=== PATIENT | female | born 1970 | race Caucasian/White ===

== ENCOUNTER 2016-08-21 06:24 | Inpatient (IN) | payer BC ==
[2016-08-21] VITALS (12 sets, daily range): BP systolic 98–119; BP diastolic 51–72
[~2016-08-21] VITALS: Ht 165 cm; Wt 54.9 kg
[~2016-08-21 06:24] MED LIST: NKM
[2016-08-21] MEDS ORDERED: D5W IVPB ONE (07:00)
[2016-08-21] MEDS ORDERED: CEFOXITIN SOD IVPB ONE (07:00)
[2016-08-21] MEDS ORDERED: Ropivacaine 5mg/ml Vial 20ml INJ ONE (07:07)
[2016-08-21] MEDS ORDERED: Morphine Sulfate PF 10 ML ONE (07:26)
[2016-08-21] MEDS ORDERED: Ropivacaine 2mg/ml Amp INJ ONE (07:27)
[2016-08-21] MEDS ORDERED: LR 1000ml ONE (07:30)
[2016-08-21] MEDS ORDERED: Sterile Water Irrig 1000ml IRRIG ONE (07:30)
[2016-08-21] MEDS ORDERED: Neostigmine 1mg/ml 10ml Inj ONE (07:30)
[2016-08-21] MEDS ORDERED: Propofol 10mg/ml 20ml IV ONE (07:30)
[2016-08-21] MEDS ORDERED: Lidocaine 1% Plain 30 ml INJ ONE (07:30)
[2016-08-21] MEDS ORDERED: fentaNYL 100 mcg/2 mL IV ONE (07:30)
[2016-08-21] MEDS ORDERED: NS Irrig 1000ml ONE (07:30)
[2016-08-21] MEDS ORDERED: Labetalol 5mg/ml 20ml vial IV ONE (07:30)
[2016-08-21] MEDS ORDERED: Glycopyrrolate 0.2mg/ml 1ml Vial ONE (07:30)
--- NOTE | 2016-08-21 07:38 | Anethesia Preoperative Eval ---
Anesthesia Pre-op PMH/ROS General Date of Evaluation: Aug 21, 2016 Time of Evaluation: 07:31 Anesthesiologist: Haleigh ASA Score: ASA 1 Mallampati Score Class I : Soft palate, uvula, fauces, pillars visible Class II: Soft palate, uvula, fauces visible Class III: Soft palate, base of uvula visible Class IV: Only hard plate visible Mallampati Classification: Class I Surgeon: Anatoly Diagnosis: Abd Pain Surgical Procedure: Total Abdominal Hysterectomy and Salpingectomy Anesthesia History: none Family History: no anesthesia problems Allergies: Coded Allergies: No Known Allergies (Unverified , 08/20/16) Medications: see eMAR Past Medical History Cardiovascular: Denies: CAD, HTN, [place], arrhythmia, other, valve dz Pulmonary: Denies: COPD, SEBASTIEN, asthma, other Gastrointestinal/Genitourinary: Reports: other - Abd Pain Neurologic/Psychiatric: Denies: CVA, TIA, dementia, depression/anxiety, other Endocrine: Denies: DM, hypothyroidism, other, steroids HEENT: Denies: VIEJAS (L), VIEJAS (R), cataract (L), cataract (R), glaucoma, other Hematology/Immune: Denies: DVT, anemia, bleeding disorder, other Musculoskeletal/Integumentary: Denies: DDD, DJD, OA, RA, edema, other Anesthesia Pre-op Phys. Exam Physician Exam Last Vital Signs Date Time Temp Pulse Resp B/P Pulse Ox O2 Delivery O2 Flow Rate FiO2 08/21/16 07:20 98.5 61 20 119/72 100 Room Air Constitutional: NAD Neurologic: CN 2-12 intact Cardiovascular: RRR Respiratory: CTA Gastrointestinal: S/NT/ND Airway Exam Mallampati Score: Class I MO: full ROM: full Teeth: intact Anesthesia Pre-op A/P Labs Urine Test Test 08/21/16 06:45 Urine HCG, Qualitative Pending Risk Assessment & Plan Assessment: ASA 1 Plan: GA, BIS, Glidescope, Spinal Status Change Before Surgery: No Pre-Antibiotics Dru Gram Ancef IV Given Within 1 Hr of Incision: Yes Time Given: 07:51 Quirino Ricardo MD Aug 21, 2016 07:38
--- NOTE | 2016-08-21 07:38 | Pre-Procedure Note/Attestation ---
Pre-Procedure Note/Attestation Complete Prior to Procedure Planned Procedure: not applicable Procedure Narrative: Hysterectomy, bilateral salpingectomy Indications for Procedure Pre-Operative Diagnosis: uterine endometriosis, metromenorhagia and dysmenorhea Attestation I attest that I discussed the nature of the procedure; its benefits; risks and complications; and alternatives (and the risks and benefits of such alternatives ), prior to the procedure, with the patient (or the patient's legal insurance sales representative). I attest that, if there was a reasonable possibility of needing a blood transfusion, the patient (or the patient's legal insurance sales representative) was given the [facility] of Health Services standardized written summary, pursuant to the Benjamín Gloria Blood Safety Act ([place] Health and Safety Code # 1645, as amended). I attest that I re-evaluated the patient just prior to the surgery and that there has been no change in the patient's H&P, except as documented below: MARIS DELANEY Aug 21, 2016 07:38
--- NOTE | 2016-08-21 07:39 | Pre-Procedure Note/Attestation ---
Pre-Procedure Note/Attestation Complete Prior to Procedure Procedure Narrative: abdominal hysterectomy/ bilateral salpingectomies Indications for Procedure Pre-Operative Diagnosis: uterine endometriosis, metromenorhagia and dysmenorhea Attestation I attest that I discussed the nature of the procedure; its benefits; risks and complications; and alternatives (and the risks and benefits of such alternatives ), prior to the procedure, with the patient (or the patient's legal roofing sales representative). I attest that, if there was a reasonable possibility of needing a blood transfusion, the patient (or the patient's legal roofing sales representative) was given the [facility] of Health Services standardized written summary, pursuant to the Benjamín Shallowater Blood Safety Act ([place] Health and Safety Code # 1645, as amended). I attest that I re-evaluated the patient just prior to the surgery and that there has been no change in the patient's H&P, except as documented below: MARIS DELANEY Aug 21, 2016 07:39
--- NOTE | 2016-08-21 07:39 | Immediate Post-Op Evaluation ---
Immediate Post-Op Evalulation Immediate Post-Op Evalulation Procedure: Total Abdominal Hysterectomy and Salpingectomy Date of Evaluation: Aug 21, 2016 Time of Evaluation: 10:31 IV Fluids: 800 LR Blood Products: 0 Estimated Blood Loss: 75 Urinary Output: 0 Blood Pressure Systolic: 103 Blood Pressure Diastolic: 55 Pulse Rate: 72 Respiratory Rate: 16 O2 Sat by Pulse Oximetry: 100 Temperature (Fahrenheit): 97.8 Pain Score (1-10): 1 Nausea: No Vomiting: No Complications 0 Patient Status: awake, reacts, patent, none Hydration Status: adequate Dru Gram Ancef IV Given Within 1 Hr of Incision: Yes Time Given: 10:51 Quirino Ricardo MD Aug 21, 2016 07:39
--- NOTE | 2016-08-21 07:40 | 48 Hour Post Anesthesia Eval ---
Post Anesthesia Evaluation Procedure: Total Abdominal Hysterectomy and Salpingectomy Date of Evaluation: Aug 21, 2016 Time of Evaluation: 12:42 Blood Pressure Systolic: 113 0: 62 Pulse Rate: 78 Respiratory Rate: 18 Temperature (Fahrenheit): 98.3 O2 Sat by Pulse Oximetry: 100 Airway: patent Nausea: No Vomiting: No Pain Intensity: 2 Hydration Status: adequate Cardiopulmonary Status: Stable Mental Status/LOC: patient returned to baseline Follow-up Care/Observations: 0 Post-Anesthesia Complications: 0 Follow-up care needed: N/A Quirino Ricardo MD Aug 21, 2016 07:40
[2016-08-21] MEDS ORDERED: Ketorolac 30mg Inj IM PRN (07:45)
[2016-08-21] MEDS ORDERED: DiphenhydrAMINE 50mg/ml Inj IVP PRN ×2 (07:45→10:30)
[2016-08-21] MEDS ORDERED: HYDROmorphone 1mg/ml Carpuject IVP PRN (07:45)
[2016-08-21] MEDS ORDERED: LR 1000ml 1,000 ML IVLG SCH (10:21)
[2016-08-21] MEDS ORDERED: Atropine Inj 1mg/10ml Syr IV PRN (10:30)
[2016-08-21] MEDS ORDERED: Metoclopramide 10mg/2ml Inj IVP PRN (10:30)
[2016-08-21] MEDS ORDERED: fentaNYL 100 mcg/2 mL IV PRN (10:30)
[2016-08-21] MEDS ORDERED: Oxycodone/Acetaminophen 5-325 ORAL PRN (10:30)
[2016-08-21] MEDS ORDERED: Ketorolac 60mg Inj IV PRN (10:30)
[2016-08-21] MEDS ORDERED: Norco 5mg/325mg tab ORAL PRN (10:30)
[2016-08-21] MEDS ORDERED: Labetalol 5mg/ml 20ml vial IV PRN (10:30)
[2016-08-21] MEDS ORDERED: Ketorolac 30mg Inj IV PRN (10:30)
[2016-08-21] MEDS ORDERED: LORazepam Inj 2mg/ml 1ml IV PRN (10:30)
[2016-08-21] MEDS ORDERED: Midazolam 2mg/2ml Inj IVP PRN (10:30)
[2016-08-21] MEDS ORDERED: Meperidine 25mg/ml Inj IV PRN (10:30)
[2016-08-21] MEDS ORDERED: Norco 7.5mg/325mg tab ORAL PRN (10:30)
[2016-08-21] MEDS ORDERED: Hydromorphone 0.5mg/0.5ml inj IVP PRN (10:30)
[2016-08-21] MEDS: Docusate 100mg cap ORAL SCH (17:13)
[2016-08-22 04:00] VITALS: BP 100/54
[2016-08-22 06:47] LABS: BASOPHILS % (AUTO) 0.6 % (0.0-2.0); EOSINOPHILS % (AUTO) 0.5 % (0.0-3.0); LYMPHOCYTES % (AUTO) 28.8 % (20.0-45.0); MEAN CORPUSCULAR HEMOGLOBIN 25.6 PG (27.0-31.0); MEAN CORPUSCULAR HGB CONC 30.5 G/DL (32.0-36.0); MEAN CORPUSCULAR VOLUME 84 FL (80-99); MEAN PLATELET VOLUME 6.5 FL (6.5-10.1); MONOCYTES % (AUTO) 11.4 % (1.0-10.0); NEUTROPHILS % (AUTO) 58.8 % (45.0-75.0); PLATELET COUNT 259 K/UL (150-450); RED BLOOD COUNT 3.35 M/UL (4.20-5.40); RED CELL DISTRIBUTION WIDTH 16.7 % (11.6-14.8); WHITE BLOOD COUNT 7.4 K/UL (4.8-10.8)
[2016-08-22 07:00] LABS: ANION GAP 9 (5-15); CARBON DIOXIDE 25 mEQ/L (20-30); CHLORIDE 103 mEQ/L (98-107); CREATININE 0.6 mg/dL (0.5-0.9); GLOMERULAR FILTRATION RATE > 60 mL/min (>60); HEMOLYSIS 0; POTASSIUM 4.2 mEQ/L (3.4-4.9); SODIUM 137 mEQ/L (135-145)
[2016-08-22 08:00] VITALS: BP 102/59
[2016-08-22] MEDS: Docusate 100mg cap ORAL SCH ×2 (09:32→17:06)
[2016-08-22 12:00] VITALS: BP 111/56
--- NOTE | 2016-08-22 12:05 | General Surgery Progress Note ---
General Surgery-Progress Note Subjective Symptoms: pain same, tolerating diet Objective Last 24 Hour Vital Signs Date Time Temp Pulse Resp B/P Pulse Ox O2 Delivery O2 Flow Rate FiO2 08/22/16 10:02 98.2 08/22/16 08:00 98.2 73 20 102/59 97 Room Air 08/22/16 04:00 98.2 71 18 100/54 98 Room Air 08/21/16 23:45 97.9 66 18 103/67 99 Room Air 08/21/16 23:28 97.7 69 18 98/59 96 Room Air 08/21/16 20:00 97.7 75 18 102/58 97 Room Air I&O Intake and Output 08/21/16 08/22/16 19:00 07:00 Intake Total 2780 ml 800 ml Output Total 225 ml 2000 ml Balance 2555 ml -1200 ml Intake Oral 680 ml 800 ml IV Total 2100 ml Output Urine Total 150 ml 2000 ml Estimated Blood Loss 75 ml Dressing: bloody Wound: clean, dry, intact Drains: none Cardiovascular: RSR Respiratory: clear Abdomen: soft, non-tender, present bowel sounds Extremities: no edema Laboratory Tests Test 08/22/16 06:05 White Blood Count 7.4 K/UL (4.8-10.8) Red Blood Count 3.35 M/UL (4.20-5.40) L Hemoglobin 8.6 G/DL (12.0-16.0) L Hematocrit 28.1 % (37.0-47.0) L Mean Corpuscular Volume 84 FL (80-99) Mean Corpuscular Hemoglobin 25.6 PG (27.0-31.0) L Mean Corpuscular Hemoglobin Concent 30.5 G/DL (32.0-36.0) L Red Cell Distribution Width 16.7 % (11.6-14.8) H Platelet Count 259 K/UL (150-450) Mean Platelet Volume 6.5 FL (6.5-10.1) Neutrophils (%) (Auto) 58.8 % (45.0-75.0) Lymphocytes (%) (Auto) 28.8 % (20.0-45.0) Monocytes (%) (Auto) 11.4 % (1.0-10.0) H Eosinophils (%) (Auto) 0.5 % (0.0-3.0) Basophils (%) (Auto) 0.6 % (0.0-2.0) Sodium Level 137 mEQ/L (135-145) Potassium Level 4.2 mEQ/L (3.4-4.9) Chloride Level 103 mEQ/L (98-107) Carbon Dioxide Level 25 mEQ/L (20-30) Anion Gap 9 (5-15) Blood Urea Nitrogen 10 mg/dL (7-23) Creatinine 0.6 mg/dL (0.5-0.9) Estimat Glomerular Filtration Rate > 60 mL/min (>60) Glucose Level 94 mg/dL (74-106) Calcium Level 8.0 mg/dL (8.6-10.2) L Assessment Post-op Diagnosis post hysterectomy doing well / routine care discharge tomorrow MARIS Gutierrez Aug 22, 2016 12:05
--- NOTE | 2016-08-22 12:18 | Brief Operative Note ---
Immediate Post Operative Note Operative Note Pre-op Diagnosis: uterine endometriosis, metromenorhagia and dysmenorhea Procedure: abdominal hysterectomy/ bilateral salpingectomies Post-op Diagnosis: post hysterectomy doing well / routine care discharge tomorrow am Post-op Diagnosis: same as pre-op Surgeon: hawa Indian Blanket Weaver: bryanna Anesthesiologist: Luis Anesthesia: general, regional Specimen: yes Complications: none Condition: stable Fluids: 800cc LR Estimated Blood Loss: volume - 75 cc Drains: none Implant(s) used?: No MARIS DELANEY Aug 22, 2016 12:18
[2016-08-22] MEDS: Oxycodone/Acetaminophen 5-325 ORAL PRN ×2 (12:41→17:07)
[2016-08-22] MEDS: Ketorolac 30mg Inj IV SCH ×2 (15:30→20:51)
[2016-08-22 16:00] VITALS: BP 101/60
[2016-08-22 20:00] VITALS: BP 112/60
--- NOTE | 2016-08-22 22:58 | Operative Note - Dictated ---
DATE OF OPERATION: 08/22/2016 PREOPERATIVE DIAGNOSIS: Adenomyosis, admitted for hysterectomy. POSTOPERATIVE DIAGNOSES: 1. Adenomyosis, admitted for hysterectomy. 2. Normal ovaries and tubes. PROCEDURES PERFORMED: 1. Abdominal hysterectomy. 2. Bilateral salpingectomy. ANESTHESIA: General endotracheal and spinal. SURGEON: Ana Ledbetter M.D. VETERINARIAN SURGEON: Sudarshan Salgado M.D. ANESTHESIOLOGIST: Quirino Ricardo M.D. ESTIMATED BLOOD LOSS: A 75 mL. FLUIDS: A 800 mL LR. PROCEDURE IN DETAIL: After ensuring informed consent, the patient was taken to the operating room. General anesthesia was induced. The patient was sterilely prepped and draped and laid in dorsal lithotomy position. A small low-transverse incision was made in the lower abdomen with a knife and carried down to the level of the fascia with the Bovie. The Bovie was nicked in the midline and the incision was extended laterally with the Bovie. Fascia was tented up and both bluntly and sharply dissected the underlying rectus muscles. Rectus muscles were parted in the midline. Peritoneum was entered sharply and the uterus was identified and exteriorized. Round ligaments were grasped with Lilia, cut, and suture ligated. A window was made and right broad ligament and the utero-ovarian along with the tubes were grasped with Agatha clamps x2, suture ligated x2, and cut. This was repeated with the left broad ligament. The bladder was resected off of the underlying lower uterine segment and cervix. It was a very densely attached to the cervix and lower uterine segment. The patient had a prior and dissection was carefully done with Metzenbaum scissors. The uterine artery in the left was grasped with curved zeppelin x2 cut, and suture ligated x2. Attention was turned to the right uterine, which was likewise grasped with zeppelin, cut, and ligated x2. The resection was continued along the cervix until the lower portion of the cervix was reached when the resection was stopped and uterine corpus with the upper portion of the cervix was amputated. The endocervix was likewise cord and everything was sent as one specimen, namely uterus to tubes and the core of the endocervix. The angles were ligated with 0 Vicryl and the serosa and the vagina were closed in mass with the cervix. Excellent hemostasis was assured from all pedicles and vaginal cuff. Peritoneal cavity was irrigated. Peritoneum was closed with 2-0 Vicryl. Fascia was closed with 0 Vicryl in two lengths. Muscle was closed approximated with one suture of 2-0 Vicryl. Subcutaneous was closed with 3-0 plain and then subcuticular suture of 4-0 Monocryl. At the end of the procedure, all instrument and lap counts were correct x3. The patient was taken to the recovery area, extubated, and in stable condition. Ana Ledbetter M.D. DR: Fabien JOB#: [id number] CC:
[2016-08-23] VITALS: BP 104/59
[2016-08-23] MEDS: Ketorolac 30mg Inj IV SCH ×2 (03:30→10:00)
[2016-08-23 04:00] VITALS: BP 117/66
[2016-08-23 08:09] VITALS: BP 108/69
[2016-08-23 08:10] VITALS: BP 108/69
[2016-08-23] MEDS: Docusate 100mg cap ORAL SCH (08:31)
[2016-08-23] MEDS ORDERED: PERCOCET 5-3251 EACH ORAL (09:19)
[2016-08-23] MEDS ORDERED: MILK OF MA400 MG/51 ORAL (09:22)
--- NOTE | 2016-08-24 12:58 | Discharge Summary ---
Discharge Summary Hospital Course Date of Admission Aug 21, 2016 at 06:24 Date of Discharge Aug 23, 2016 at 10:30 Admitting Diagnosis adenomyosis admitted for hysterectomy Reason for Hospitalization: admitted for hysterectojmy HPI Leida Chris, 46 year old female , was admitted on Aug 21, 2016 at 06: 24. Hx of adenomyosis admitted for elective hysterectomy Procedures s/p abdominal hysterectomy, bilateral salpingectomy 08/21 dr Ledbetter Hospital Course 46 y/o female with hx of adenomyosis was admitted for elective hysterectomy test negative s/p 08/21 abdominal hysterectomy and bilateral salpingectomy course of recovery uneventful IVF initially NPO, diet slowly advanced, tolerates antiemetic prn pain management bowel regimen ambulates freely urinates freely anemia likely 2 to underlying adenomyosis, outpatient close follow up pa home fup with RISK ASSESSOR as recommended Discharge Medications Continued Medications: Oxycodone/Acetaminophen 5-325* (Percocet 5-325 Mg Tablet*) 1 Each Tablet 1 TAB ORAL Q4H PRN for For Pain, TAB Discontinued Medications: Magnesium Hydroxide* (Milk Of Magnesia*) 400 Mg/5 Ml Oral.susp 30 ML ORAL DAILY, ML No Known Medications* (NKM - No Known Medications*) . 0 ., 0 Refills Discharge Condition Upon Discharge: improving, stable Discharge Disposition Patient was discharged to Home () Discharge Diagnoses: (1) Adenomyosis (2) S/P abdominal hysterectomy (3) Anemia Discharge Instructions Discharge Instructions Follow up with: PMD and surgeon Call MD/Return to Hospital if: fever, chills, drainage from surgical site, pain not controlled Diet: regular - as tolerated Activity: resume normal activities, as tolerated Special Instructions I have been assigned to complete a D/C Summary on this account. I was not involved in the patient management For Surgical Patients Contact your physician for: bleeding, pain, tenderness, redness, swelling, yellowish discharge in the op. site Fiorella Workman NP ([place]) Aug 24, 2016 12:58
== END 2016-08-23 10:30 | disposition home or self-care (01) | DRG 743 ==
LOC: SDSOVERFLO 06:24 → 3E 11:32
PROC: 0UT70ZZ Resection of Bilateral Fallopian Tubes, Open Approach (ICD-10-PCS; principal; 2016-08-22)
PROC: 0UT90ZZ Resection of Uterus, Open Approach (ICD-10-PCS; principal; 2016-08-22)
DX: N80.0 Endometriosis of uterus (principal); D64.9 Anemia, unspecified; N92.1 Excessive and frequent menstruation with irregular cycle
CPT/HCPCS: 36415; 80048; 81025; 85025; 86850; 86870; 86900; 86901; 87081; 94003; 94150; J2180; J2405; J2710